=== PATIENT | male | born 1955 | race Hispanic/Latino ===

== ENCOUNTER 2017-08-26 21:08 | Emergency (ER) | payer BC, MEDICARE ==
[2017-08-26 21:35] VITALS: PULSE 75; RESP 18; BMI 26.7
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
--- NOTE | 2017-08-26 23:29 | RAD ---
EXAM: XR Left Ribs and AP Chest, 3 or More Views EXAM DATE/TIME: 08/26/2017 9:37 PM CLINICAL HISTORY: The patient age is 62 years old and is male; Injury or trauma; Fall; Initial encounter; Rib area, left side; Blunt trauma Facility exam id and description: Rad ribs lpa ribs left pa chest TECHNIQUE: Frontal and oblique views of the left ribs and frontal view of the chest. COMPARISON: CR - CHEST TWO VIEWS (PA/LAT) 2015-10-23 11:29 FINDINGS: Lungs: There is no confluent infiltrate. The lungs are hyperinflated, consistent with COPD. Pleural space: No pleural effusions. No pneumothorax. Heart: No cardiomegaly. Mediastinum: Unremarkable. Bones/joints: There is a fracture of the left eighth rib. Hypertrophic degenerative changes are noted within the spine. The remaining left ribs are intact. Osteopenia. Fusion hardware is visualized within the lower cervical spine. A few small lucent probable cysts are identified within the left humeral head. IMPRESSION: 1. There is a fracture of the left eighth rib. 2. There is no confluent infiltrate. 3. The lungs are hyperinflated, consistent with COPD.
[2017-08-26 23:53] VITALS: BP 146/78; TEMP 98.2; O2SAT 98
== END 2017-08-26 23:50 | disposition home or self-care (01) ==
LOC: ED 21:08
DX: S22.32XA Fracture of one rib, left side, initial encounter for closed fracture (principal); V29.9XXA Motorcycle rider (driver) (passenger) injured in unspecified traffic accident, initial encounter; F17.210 Nicotine dependence, cigarettes, uncomplicated
CPT/HCPCS: 71101; 96372; 99283; J1885